=== PATIENT | female | born 1965 | race Caucasian/White ===

== ENCOUNTER 2019-05-21 03:05 | Emergency (ER) | payer OTHER ==
--- NOTE | 2019-05-21 03:10 | Emergency Department Record ---
History of Present Illness - General Stated Complaint: HEADACHES Time Seen by Provider: 05/21/19 03:07 Source: Patient Mode of Arrival: Ambulatory Limitations: No limitations - History of Present Illness Initial Comments: 53 yo female presents with headaches. She states she has had right sided headaches that initially started 6 years ago. The pain starts near the ear area and radiates to the hoahaoism, jaw, teeth and upper neck. The pain is sharp. The pain comes in sudden worse waves that are intense then subsides for a while but can still be felt. It lasts several minutes when severe. In the past the pain would come and go. In the last 2-3 months the pain has become constant. She denies any hearing loss, vision changes, facial weakness, speech changes. No neck swelling. No weakness, numbness, tingle or coordination changes. She did see her doctor. She is scheduled for physical therapy for the neck as the possible source coming up soon. MD Complaint: Headache -: Year(s) Onset Description: Gradual Location: Facial, Right, Temporal, Other (teeth, jaw) Severity: Moderate Quality: Sharp Consistency: Constant Improves With: Nothing Worsens With: None Context: Other Associated Symptoms: Other Other Symptoms: Other Treatments Prior to Arrival: None - Related Data Home Medications Medication Instructions Recorded Confirmed Last Taken Ergocalciferol (Vitamin D2) 5,000 unit PO 05/21/19 Unknown [Vitamin D2] Folic Acid 2 mg PO 05/21/19 Unknown Losartan Potassium 100 mg PO DAILY 05/21/19 05/21/19 Unknown Vitamin B Complex 1 each PO DAILY 05/21/19 05/21/19 Unknown Previous Rx's Medication Instructions Recorded Hydrocodone/APAP 5/325Mg [Bayside 1 each PO Q6H #10 tab 05/21/19 5Mg/325Mg] Methylprednisolone [Medrol Dose 0 mg PO UD #1 tab.ds.pk 05/21/19 Pack] Allergies Allergy/AdvReac Type Severity Reaction Status Date / Time Penicillins Allergy RASH Verified 01/08/14 00:30 sulfamethoxazole Allergy ANAPHYLAXIS Verified 01/08/14 00:30 [From Bactrim] trimethoprim [From Bactrim] Allergy ANAPHYLAXIS Verified 01/08/14 00:30 Review of Systems Constitutional: Denies: Chills, Fever, Malaise, Weakness Eyes: Denies: Eye discharge, Eye pain, Photophobia, Vision change ENT: Reports: Dental pain (upper and lower teeth constantly ache), Ear pain. Denies: Congestion, Epistaxis, Hearing loss, Throat pain Respiratory: Denies: Cough, Dyspnea Cardiovascular: Denies: Chest pain, Palpitations Endocrine: Denies: Fatigue Gastrointestinal: Denies: Diarrhea Genitourinary: Denies: Dysuria, Frequency, Hematuria, Urgency Musculoskeletal: Denies: Arthralgia, Back pain, Joint swelling, Myalgia Skin: Denies: Bruising, Change in color, Rash Neurological: Reports: Headache. Denies: Abnormal gait, Confusion, Numbness, Paresthesias, Seizure, Tingling, Tremors, Vertigo, Weakness Psychiatric: Denies: Anxiety Hematological/Lymphatic: Denies: Easy bleeding, Easy bruising Past Medical History - SOCIAL HISTORY Smoking Status: Never smoker - RESPIRATORY Hx Respiratory Disorders: No - CARDIOVASCULAR Hx Cardio Disorders: No - NEURO Hx Neuro Disorders: No - GI Hx GI Disorders: Yes - Hx Genitourinary Disorders: No - ENDOCRINE Hx Endocrine Disorders: No - MUSCULOSKELETAL Hx Musculoskeletal Disorders: No - PSYCH Hx Psych Problems: No - HEMATOLOGY/ONCOLOGY Hx Hematology/Oncology Disorders: No Family Medical History Hx Cancer: Mother Hx Diabetes: Mother, Grandparents Hx Heart Disease: Mother Hx Stroke: Grandparents Physical Exam - General General Appearance: Alert, Oriented x3, Cooperative, No acute distress Limitations: No limitations - Head Head exam: Atraumatic, Normocephalic, Normal inspection Head exam detail: negative: Abrasion, Contusion, General tenderness, Tenderness of temporal artery - Eye Eye exam: Normal appearance, PERRL, EOMI. negative: Conjunctival injection, Nystagmus, Periorbital swelling, Periorbital tenderness, Scleral icterus - ENT ENT exam: Normal exam, Mucous membranes moist, Normal orophraynx, TM's normal bilaterally. negative: Mucous membranes dry Ear exam: Normal external inspection Nasal Exam: Normal inspection Mouth exam: Normal external inspection. negative: Drooling, Muffled voice Teeth exam: Normal inspection. negative: Dental caries, Dental tenderness #, Fractured tooth #, Gingival enlargement Throat exam: Normal inspection. negative: Tonsillar erythema, Tonsillomegaly, Tonsillar exudate, R peritonsillar mass, L peritonsillar mass - Neck Neck exam: Normal inspection, Full ROM. negative: Lymphadenopathy, Meningismus, Tenderness - Respiratory Respiratory exam: Normal lung sounds bilaterally. negative: Respiratory distress, Rhonchi, Stridor, Wheezes - Cardiovascular Cardiovascular Exam: Regular rate, Normal rhythm, Normal heart sounds - GI/Abdominal GI/Abdominal exam: Soft. negative: Tenderness - Rectal Rectal exam: Deferred - exam: Deferred - Extremities Extremities exam: Normal inspection. negative: Calf tenderness, Pedal edema, Tenderness - Back Back exam: Denies: CVA tenderness (R), CVA tenderness (L), Tenderness - Neurological Neurological exam: Alert, CN II-XII intact, Normal gait, Oriented X3, Reflexes normal. negative: Abnormal gait, Altered, Motor sensory deficit - Psychiatric Psychiatric exam: Normal affect, Normal mood - Skin Skin exam: Dry, Intact, Normal color, Warm Course - Reevaluation(s) Reevaluation #1: 05/21/19 04:22 The CBC is normal The CMP is normal The CRP is normal 05/21/19 04:35 The HCT was reviewed No acute process The Sed Rate is normal On recheck the patient has good pain control and is comfortable We discussed the findings Some of the features suggest possible trigeminal neuralgia with the distribution of pain, waves of abrupt severe pain and normal neurologic examination as tested. 05/21/19 04:45 Medical Decision Making - Lab Data Result diagrams: 05/21/19 03:40 05/21/19 03:40 Disposition Disposition: Discharge Clinical Impression: Headache Qualifiers: Headache type: unspecified Headache chronicity pattern: chronic headache Intractability: not intractable Qualified Code(s): R51 - Headache Disposition: Home, Self-Care Condition: (1) Good Instructions: Trigeminal Neuralgia (ED), Acute Headache (ED) Additional Instructions: Review this ER visit and the tests performed with your family doctor Call your doctor for the next available follow up appointment Consider a neurology referral if the pain persist Return to the ER for a recheck if worse, any new concerns or questions Take the prescriptions provided as directed Prescriptions: Methylprednisolone [Medrol Dose Pack] 0 mg PO UD #1 tab.ds.pk Hydrocodone/APAP 5/325Mg [[place]ide 5Mg/325Mg] 1 each PO Q6H #10 tab Time of Disposition: 04:36 Quality - Quality Measures Quality Measures: N/A - Blood Pressure Screening Does Patient Have Any of the Following: Active Dx of HTN Blood Pressure Classification: Pre-Hypertensive BP Reading Systolic Measurement: 152 Diastolic Measurement: 80 Screening for High Blood Pressure: Patient Exclusion, Hx of HTN [[id number]]
[2019-05-21] MEDS ORDERED: 0.9 % SODIUM CHLORIDE 1,000 ML BAG IV ONE (03:20)
[2019-05-21] MEDS ORDERED: ACETAMINOPHEN 1,000 MG/100 ML BTL IVPB ONE (03:21)
[2019-05-21] MEDS ORDERED: KETOROLAC 30 MG/ML VIAL IVP ONE (03:27)
[2019-05-21 03:49] LABS: ABSOLUTE NEUTROPHIL COUNT 3.04; BASO % 0.5 % (0-6); GRAN % 55.4 % (47-80); HEMATOCRIT 40.9 % (35.0-47.0); HEMOGLOBIN 13.2 gm/dl (11.6-16.0); LYMPH % 28.8 % (16-45); MEAN CELL VOLUME 91.3 fl (81-97); MEAN CORPUSCULAR HEMOGLOBIN 29.5 pg (27-33); MEAN CORPUSCULAR HGB CONC 32.3 g/dl (32-36); MEAN PLATELET VOLUME 11.3 fl (7.4-10.4); MONO % 11.3 % (0-9); PLATELET COUNT 236 K/uL (130-400); RED BLOOD COUNT 4.48 M/uL (3.80-5.40); WHITE BLOOD COUNT W/O DIFF 5.5 K/uL (4.2-12.2)
[2019-05-21 03:57] LABS: BLOOD UREA NITROGEN 21 mg/dL (6-20); CREATININE 0.5 mg/dL (0.5-0.9); EST GLOMERULAR FILTRATION RATE > 60 mL/min
[2019-05-21 03:58] LABS: TOTAL PROTEIN 6.8 g/dL (6.6-8.7)
[2019-05-21 04:00] LABS: GLUCOSE,RANDOM 107 mg/dL (74-109)
[2019-05-21 04:03] LABS: ALB/GLOB RATIO 1.4 (1.1-1.8); ALKALINE PHOSPHATASE 73 U/L (35-104); ALT/SGPT 32 U/L (<33); AST/SGOT 26 U/L (10.0-35.0)
--- NOTE | 2019-05-21 04:24 | CT SCAN REPORT ---
EXAMINATION: HEAD WO CONTRAST EXAM DATE: 05/21/2019 4:14 AM TECHNIQUE: Noncontrast axial images were obtained of the brain. Coronal and sagittal reformatted vaibhav ges were generated. INDICATION: headache on the right for 2-3 months COMPARISON: None. FINDINGS: The ventricular system is normal in size and morphology. The basal cisterns are patent and there is n o midline shift or herniation. The brain parenchyma is unremarkable. No loss of romero-white matter differentiation or sulcal effaceme nt to indicate acute infarction. No evidence of intracranial mass. No intra-axial or extra-axial fluid collection. The paranasal sinuses are unremarkable. The mastoid air cells are clear. The orbital structures are u nremarkable. The calvarium is intact. IMPRESSION: No evidence of acute intracranial abnormality. Dictated by: Lety Barrera MD on 05/21/2019 4:15 AM. .
[2019-05-21 04:34] LABS: ERYTHROCYTE SEDIMENTATION RATE 16 mm/hr (0-30)
== END 2019-05-21 04:56 | disposition home or self-care (01) ==
LOC: ER 03:05
DX: R51 Headache (principal)
CPT/HCPCS: 70450; 80053; 85025; 85651; 86140; 96374; 96375; 99284; J1885; J7030